=== PATIENT | male | born 1995 | race Caucasian/White ===

== ENCOUNTER 2022-09-11 22:49 | Emergency (ER) | payer BC ==
[2022-09-11 22:52] VITALS: BP 170/82; PULSE 88; RESP 18; TEMP 98; BMI 26.4
[2022-09-11] MEDS ORDERED: SODIUM CHLORIDE 0.9% 500 ML INFUS.BAG IV ONE (23:23)
[2022-09-11] MEDS ORDERED: ONDANSETRON 4 MG/2 ML VIAL IVPUSH ONE (23:23)
[2022-09-11] MEDS ORDERED: MAG HYDROX/AL HYDROX/SIMETH -MYLANTA- ORAL SUSPENSION PO ONE (23:23)
[2022-09-11] MEDS ORDERED: MAG HYDROX/AL HYDROX/SIMETH 30 ML UNIT-DOSE CUP ONE (23:32)
[2022-09-11] MEDS ORDERED: ONDANSETRON 4 MG/2 ML VIAL ONE (23:32)
[2022-09-11 23:51] LABS: BASO % 0.8 % (0-2.0); EOS % 0.6 % (0-4.5); HEMATOCRIT 40.7 % (35.4-49); HEMOGLOBIN 14.1 GM/dL (11.7-16.9); LYMPH % 16.2 % (8-40); MCH 31.4 pg (25.7-33.7); MCHC 34.7 g/dl (32.0-35.9); MEAN CELL VOLUME 90.5 fl (80-96); MONO % 9.9 % (3.8-10.2); NEUT % 72.5 % (42.8-82.8); PLATELET COUNT 204 10^3/uL (134-434); RDW 13.1 % (11.9-15.9); WHITE BLOOD COUNT 10.1 K/mm3 (4.0-10.0)
[2022-09-12 00:11] LABS: CALCIUM 9.2 mg/dL (8.5-10.1)
[2022-09-12 00:12] LABS: ALBUMIN 3.8 g/dl (3.4-5.0); BLOOD UREA NITROGEN 14.2 mg/dL (7-18)
[2022-09-12 00:15] LABS: CREATININE 1.1 mg/dL (0.55-1.3)
[2022-09-12 00:16] LABS: BILIRUBIN,TOTAL 0.2 mg/dL (0.2-1); TOT PROT 6.9 g/dl (6.4-8.2)
== END 2022-09-12 01:02 | disposition home or self-care (01) ==
LOC: JER 22:49
PROC: 3E033GC Introduction of Other Therapeutic Substance into Peripheral Vein, Percutaneous Approach (ICD-10-PCS; principal; 2022-09-11)
DX: R11.2 Nausea with vomiting, unspecified (principal); R10.13 Epigastric pain
CPT/HCPCS: 36415; 80053; 80307; 83690; 85025; 99284-25

== ENCOUNTER 2025-01-11 00:16 | Emergency (ER) | payer BC, OTHER ==
[2025-01-11 00:21] VITALS: TEMP 97.9; BMI 27.8
[2025-01-11] MEDS ORDERED: ACETAMINOPHEN 500 MG TABLET (FP) ONE (01:01)
[2025-01-11] MEDS: ACETAMINOPHEN 500 MG TABLET (FP) PO ONE (01:13)
[2025-01-11] MEDS: ALBUTEROL SO4 2.5/IPRATROPIUM 0.5 INH SOL 3 ML VIAL.NEB. NEB SCH (01:13)
[2025-01-11 02:34] VITALS: BP 121/69; PULSE 59; RESP 18
== END 2025-01-11 02:35 | disposition home or self-care (01) ==
LOC: JER 00:16
PROC: 3E0F7GC Introduction of Other Therapeutic Substance into Respiratory Tract, Via Natural or Artificial Opening (ICD-10-PCS; principal; 2025-01-11)
DX: R07.89 Other chest pain (principal); R20.0 Anesthesia of skin; R06.2 Wheezing
CPT/HCPCS: 71046-TC-FY; 93005; 93010; 99284-25